=== PATIENT | female | born 1980 | race Caucasian/White ===

== ENCOUNTER 2017-10-22 18:15 | Emergency (ER) | payer BC, OTHER ==
[2017-10-22 21:20] VITALS: BP 119/70
--- NOTE | 2017-10-22 21:35 | ED ---
Respiratory - HPI Summary HPI Summary: 37 yr old female with the complaint of cough, congestion, chest tightness, chills, fatigue, and exposure to people with influenza. She has been ill with coughing at times the past month, but over the weekend worsened. The patient came in this evening because she lives with her father who is on dialysis, and she doesn't want to pass this on to him if possible. - History of Current Complaint Chief Complaint: UCRespiratory Stated Complaint: RESPIRATORY Time Seen by Provider: 10/22/17 21:05 Pain Intensity: 0 - Allergy/Home Medications Allergies/Adverse Reactions: Allergies Allergy/AdvReac Type Severity Reaction Status Date / Time MS Oxycodone [From Percocet] AdvReac Severe Hallucinati Verified 10/22/17 21:09 ons MS Tramadol [Tramadol] AdvReac Severe Vomiting Verified 10/22/17 21:09 Home Medications: Home Medications Amoxicillin PO (*) [Amoxicillin 500 MG CAP*] 500 mg PO Q12H 10/22/17 [History Confirmed 10/22/17] Ibuprofen/Diphenhydramine Cit [Advil Pm Caplet] 1 each PO PRN 10/22/17 [History] Levonorgestrel-Ethin Estradiol [Lessina-28] 1 tab PO DAILY 10/22/17 [History Confirmed 10/22/17] PMH/Surg Hx/FS Hx/Imm Hx Previously Healthy: Yes Endocrine/Hematology History: Denies: Hx Diabetes, Hx Thyroid Disease Cardiovascular History: Denies: Hx Hypertension Respiratory History: Denies: Hx Asthma, Hx Chronic Obstructive Pulmonary Disease (COPD) GI History: Denies: Hx Ulcer - Surgical History Surgery Procedure, Year, and Place: TYMPANOPLASTY 1994, CHOLECYSTECTOMY, CSECTION Infectious Disease History: Yes Infectious Disease History: Reports: History Other Infectious Disease - CHICKENPOX Denies: Hx Clostridium Difficile, Hx Hepatitis, Hx Human Immunodeficiency Virus (HIV), Hx of Known/Suspected MRSA, Hx Shingles, Hx Tuberculosis, Hx Known/ Suspected VRE, Hx Known/Suspected VRSA, Traveled Outside the [place] in Last 30 Days - Family History Known Family History: Positive: None - Social History Alcohol Use: None Substance Use Type: Reports: None Smoking Status (MU): Never Smoked Tobacco Review of Systems Positive: Chills, Fatigue Positive: Nasal Discharge Positive: Cough Negative: Rash Negative: Headache All Other Systems Reviewed And Are Negative: Yes Physical Exam Triage Information Reviewed: Yes Vital Signs On Initial Exam: Initial Vitals Temp Pulse Resp BP Pulse Ox 98.8 F 72 16 119/70 98 10/22/17 21:12 10/22/17 21:12 10/22/17 21:12 10/22/17 21:12 10/22/17 21:12 Vital Signs Reviewed: Yes Appearance: Positive: Well-Appearing, No Pain Distress Skin: Positive: Warm, Skin Color Reflects Adequate Perfusion Head/Face: Positive: Normal Head/Face Inspection Eyes: Positive: EOMI Neck: Positive: Nontender Respiratory/Lung Sounds: Positive: Clear to Auscultation, Breath Sounds Present Cardiovascular: Positive: RRR, Murmur Abdomen Description: Positive: Nontender Musculoskeletal: Positive: Strength/ROM Intact Neurological: Positive: Sensory/Motor Intact, Alert, Oriented to Person Place, Time, CN Intact II-III Psychiatric: Positive: Normal - [place] Coma Scale Best Eye Response: 4 - Spontaneous Best Motor Response: 6 - Obeys Commands Best Verbal Response: 5 - Oriented Coma Scale Total: 15 Diagnostics - Vital Signs Vital Signs Temp Pulse Resp BP Pulse Ox 10/22/17 21:12 98.8 F 72 16 119/70 98 - Laboratory Lab Statement: Any lab studies that have been ordered have been reviewed, and results considered in the medical decision making process. Disposition - Course Course Of Treatment: 37 yr old with influenza by testing. Rx tamiflu. - Diagnoses Provider Diagnoses: Influenza Discharge - Discharge Plan Condition: Good Disposition: HOME Prescriptions: Oseltamivir CAP* [Tamiflu CAP*] 75 mg PO BID #10 cap Patient Education Materials: Influenza (ED) Referrals: No Primary Care Phys,NOPCP [Primary Care Provider] - [facility] [Outside]
[2017-10-22] MEDS ORDERED: Oseltamivir CAP* 75 MG CAP PO ONE (21:50)
== END 2017-10-22 21:57 | disposition home or self-care (01) ==
LOC: UCCORT 18:15
DX: J11.1 Influenza due to unidentified influenza virus with other respiratory manifestations (principal)
CPT/HCPCS: 87502; 99212; A9270-GY; G0463

== ENCOUNTER 2018-12-21 11:38 | Emergency (ER) | payer BC ==
[2018-12-21 12:59] VITALS: BP 117/89
--- NOTE | 2018-12-21 13:11 | UC ---
Throat Pain/Nasal Lázaro HPI - HPI Summary HPI Summary: pt states she was running a temp yesterday, none today. When she woke up this morning, she had a sorethroat that is very painful. Denies coughing, headache or upset stomach. - History of Current Complaint Chief Complaint: UCRespiratory Stated Complaint: SORE THROAT Time Seen by Provider: 12/21/18 12:56 Hx Obtained From: Patient Hx Last Menstrual Period: 11/08/18 on OBC ?: No Onset/Duration: Sudden Onset, Lasting Days Severity: Severe Pain Intensity: 9 Associated Signs & Symptoms: Positive: Dysphagia, Hoarseness - Allergies/Home Medications Allergies/Adverse Reactions: Allergies Allergy/AdvReac Type Severity Reaction Status Date / Time MS Oxycodone [From Percocet] AdvReac Severe Hallucinati Verified 12/21/18 12:59 ons MS Tramadol [Tramadol] AdvReac Severe Vomiting Verified 12/21/18 12:59 Home Medications: Home Medications Acetaminophen [Acetaminophen Extra Strength] 1,000 mg PO Q4H PRN 12/21/18 [ History Confirmed 12/21/18] PMH/Surg Hx/FS Hx/Imm Hx Previously Healthy: Yes - Surgical History Surgical History: Yes Surgery Procedure, Year, and Place: TYMPANOPLASTY 1994, CHOLECYSTECTOMY, C- SECTION - Family History Known Family History: Positive: None - Social History Alcohol Use: None Substance Use Type: None Smoking Status (MU): Never Smoked Tobacco - Immunization History Most Recent Influenza Vaccination: [id number] Review of Systems All Other Systems Reviewed And Are Negative: Yes Constitutional: Positive: Negative Skin: Positive: Negative Eyes: Positive: Negative ENT: Positive: Sore Throat Respiratory: Positive: Cough Cardiovascular: Positive: Negative Gastrointestinal: Positive: Negative Genitourinary: Positive: Negative Motor: Positive: Negative Neurovascular: Positive: Negative Musculoskeletal: Positive: Negative Neurological: Positive: Negative Psychological: Positive: Negative Is Patient Immunocompromised?: No Physical Exam Triage Information Reviewed: Yes Appearance: Well-Nourished, Ill-Appearing, Pain Distress Vital Signs: Initial Vital Signs Temp 98.6 F 12/21/18 12:52 Pulse 87 12/21/18 12:52 Resp 16 12/21/18 12:52 BP 117/89 12/21/18 12:52 Pulse Ox 100 12/21/18 12:52 Vital Signs Reviewed: Yes Eye Exam: Normal ENT: Positive: Pharyngeal erythema, TM bulging, Tonsillar swelling Dental Exam: Normal Neck exam: Normal Neck: Positive: Supple, Nontender, No Lymphadenopathy Respiratory Exam: Normal Respiratory: Positive: Chest non-tender, Lungs clear, Normal breath sounds Cardiovascular Exam: Normal Cardiovascular: Positive: RRR, No Murmur, Pulses Normal Abdominal Exam: Normal Abdomen Description: Positive: Nontender, No Organomegaly, Soft Bowel Sounds: Positive: Present Musculoskeletal Exam: Normal Neurological Exam: Normal Psychological Exam: Normal Skin Exam: Normal Throat Pain/Nasal Course/Dx - Course Course Of Treatment: hx obtained, exam performed, meds reviewed, rapid strep performed. - Differential Dx/Diagnosis Differential Diagnosis/HQI/PQRI: Influenza, Laryngitis, Otitis Media, Pharyngitis, Sinusitis, URI Provider Diagnosis: Pharyngitis Discharge - Sign-Out/Discharge Documenting (check all that apply): Patient Departure All imaging exams completed and their final reports reviewed: No Studies - Discharge Plan Condition: Stable Disposition: HOME Patient Education Materials: Pharyngitis (ED) Referrals: Sumeet Fish [Primary Care Provider] - Additional Instructions: 1. ibuprofen 400 - 600 mg every 4-6 hours 2. salt water gargles, warm fluids 3. Follow up as needed. - Billing Disposition and Condition Condition: STABLE Disposition: Home - Attestation Statements Provider Attestation: I was available for consult. This patient was seen by the RANDY. The patient was not presented to, seen by, or examined by me. EK
== END 2018-12-21 13:46 | disposition home or self-care (01) ==
LOC: UCCORT 11:38
DX: J02.9 Acute pharyngitis, unspecified (principal); Z88.5 Allergy status to narcotic agent
CPT/HCPCS: 87651; 99211; G0463

== ENCOUNTER 2019-07-20 10:15 | Emergency (ER) | payer BC ==
[2019-07-20 10:40] VITALS: BP 122/59
[2019-07-20] MEDS ORDERED: Albuterol/Ipratropium NEB.SOL* Albuterol 2.5 MG/Ipratropium 0.5 MG 3 ML INH ONE (10:45)
--- NOTE | 2019-07-20 10:46 | UC ---
Respiratory Complaint HPI - HPI Summary HPI Summary: cough and chest congestion for 4 days-works as a before and after school daycare worker - History of Current Complaint Chief Complaint: UCRespiratory Stated Complaint: COUGH, CONGESTION Time Seen by Provider: 07/20/19 10:41 Hx Obtained From: Patient Hx Last Menstrual Period: 07/19/19 ?: No Onset/Duration: Sudden Onset, Lasting Days - 3-4, Still Present Timing: Constant Pain Intensity: 7 Pain Scale Used: 0-10 Numeric Character: Cough: Productive Aggravating Factors: Deep Breaths, Recumbent Position Alleviating Factors: Nothing Associated Signs And Symptoms: Positive: Pleuritic Chest Pain, URI - Allergies/Home Medications Allergies/Adverse Reactions: Allergies Allergy/AdvReac Type Severity Reaction Status Date / Time oxycodone Allergy Severe hallucinations Verified 07/20/19 10:33 and vomiting tramadol Allergy Unknown Vomiting Verified 07/20/19 10:33 Home Medications: Home Medications Tolterodine (NF) [Detrol (NF)] 1 mg PO DAILY 07/20/19 [History Confirmed ] PMH/Surg Hx/FS Hx/Imm Hx Previously Healthy: No - pcos Other GI/ History: urinary inconten. - Surgical History Surgical History: Yes Surgery Procedure, Year, and Place: TYMPANOPLASTY 1994, CHOLECYSTECTOMY, C- SECTION - Family History Known Family History: Positive: None - Social History Occupation: Employed Full-time - teacher Lives: With Family Alcohol Use: None Substance Use Type: None Smoking Status (MU): Never Smoked Tobacco - Immunization History Most Recent Influenza Vaccination: [id number] Review of Systems All Other Systems Reviewed And Are Negative: Yes Constitutional: Positive: Negative Skin: Positive: Negative Eyes: Positive: Negative ENT: Positive: Negative Respiratory: Positive: Cough Cardiovascular: Positive: Negative Gastrointestinal: Positive: Negative Genitourinary: Positive: Negative Motor: Positive: Negative Neurovascular: Positive: Negative Musculoskeletal: Positive: Negative Neurological: Positive: Negative Psychological: Positive: Negative Is Patient Immunocompromised?: No Physical Exam Triage Information Reviewed: Yes Appearance: Well-Appearing, No Pain Distress, Well-Nourished Vital Signs: Initial Vital Signs Temp 98.6 F 07/20/19 10:34 Pulse 88 07/20/19 10:34 Resp 15 07/20/19 10:34 BP 122/59 07/20/19 10:34 Pulse Ox 99 07/20/19 10:34 Vital Signs Reviewed: Yes Eye Exam: Normal Eyes: Positive: Conjunctiva Clear ENT Exam: Normal ENT: Positive: Normal ENT inspection, Hearing grossly normal, Pharynx normal, TMs normal, Uvula midline. Negative: Nasal congestion, Tonsillar swelling, Tonsillar exudate, Trismus, Muffled voice, Hoarse voice, Sinus tenderness Dental Exam: Normal Neck exam: Normal Neck: Positive: Supple, Nontender, No Lymphadenopathy Respiratory Exam: Other Respiratory: Positive: Chest non-tender, No respiratory distress, No accessory muscle use, Wheezing - expiratory Cardiovascular Exam: Normal Cardiovascular: Positive: RRR, No Murmur, Pulses Normal, Brisk Capillary Refill Musculoskeletal Exam: Normal Musculoskeletal: Positive: Strength Intact, ROM Intact, No Edema Neurological Exam: Normal Neurological: Positive: Alert, Muscle Tone Normal Psychological Exam: Normal Skin Exam: Normal Respiratory Course/Dx - Course Course Of Treatment: neb with increase aeration and decrease wheeze - Differential Dx/Diagnosis Provider Diagnosis: Bronchitis, acute, with bronchospasm Discharge ED - Sign-Out/Discharge Documenting (check all that apply): Patient Departure All imaging exams completed and their final reports reviewed: No Studies - Discharge Plan Condition: Stable Disposition: HOME Prescriptions: Albuterol HFA INHALER* [Ventolin HFA Inhaler*] 2 puff INH Q4H PRN #1 mdi PRN Reason: cough/chest congestion/wheeze Azithromycin TAB* [Zithromax TAB (Z-KESHA) 250 mg #6 tabs] 2 tab PO .TODAY, THEN 1 DAILY #1 kesha Patient Education Materials: Acute Bronchitis (ED), Bronchospasm (ED), How to Use a Metered-Dose Inhaler and a Spacer (ED) Referrals: Sumeet Fish [Primary Care Provider] - If Needed - Billing Disposition and Condition Condition: STABLE Disposition: Home
== END 2019-07-20 11:25 | disposition home or self-care (01) ==
LOC: UCCORT 10:15
DX: J20.9 Acute bronchitis, unspecified (principal); Z88.5 Allergy status to narcotic agent
CPT/HCPCS: 99212; A9270-GY; G0463